=== PATIENT | female | born 1990 | race Caucasian/White ===

== ENCOUNTER → 2017-02-20 | Outpatient (CLI) | payer OTHER ==
[~2017-02-20] MED LIST: ALBUTEROL0.09 MG/A2 IH; AMOXICILLIN500 MG PO; DIFLUCAN150 MG PO
== END | disposition home or self-care (01) ==
LOC: US 16:42
DX: R10.2 Pelvic and perineal pain (principal); R19.8 Other specified symptoms and signs involving the digestive system and abdomen

== ENCOUNTER → 2018-01-31 | Outpatient (CLI) | payer OTHER ==
--- NOTE | ~2018-01-31 | HM ---
[place], [place] HOLTER MONITOR REPORT NAME[facility] [id number] UNIT #: [id number] ROOM: DOCTOR: PETRA NOWAK MD BIRTHDATE: [birth year] DOS: 01/31/2018 24-HOUR HOLTER MONITOR Study was recorded from January 31 through the . It was analyzed on February 03 and interpreted on 02/04/2018. INDICATIONS: Palpitations and lightheadedness. FINDINGS: The patient was monitored utilizing a Holter device for 24 hours. The basic rhythm was sinus with an average heart rate of 81. Her heart rate in the sinus rhythm varied from 45-140 beats per minute. No ventricular arrhythmias were recorded. Specifically, there was no ventricular tachycardia or PVCs. One premature atrial contraction was recorded. There were no prolonged pauses. The patient did complain of tightness in her chest while standing still. The monitor showed sinus rhythm at a rate of 83. She also reported that her heart was racing while she was driving. The monitor showed sinus tachycardia with a rate of 119. No definite arrhythmias were seen. IMPRESSION: Normal sinus rhythm with normal rate variation. No pathologic arrhythmias were recorded during the patient's symptoms of chest tightness or heart racing. PETRA NOWAK MD CM:HOLTER:HOLTER MONITOR REPORT [id number] PETRA NOWAK MD
== END | disposition home or self-care (01) ==
LOC: CARD 01-30 09:00
DX: R00.2 Palpitations (principal); R06.83 Snoring; R09.89 Other specified symptoms and signs involving the circulatory and respiratory systems; R53.83 Other fatigue; R42 Dizziness and giddiness

== ENCOUNTER → 2018-02-05 | Outpatient (CLI) | payer OTHER | END | disposition home or self-care (01) | LOC: US 11:00 | DX: I65.21 Occlusion and stenosis of right carotid artery (principal); R20.0 Anesthesia of skin ==